=== PATIENT | male | born 1990 | race African-American/Black ===

== ENCOUNTER → 2020-12-19 13:20 | Outpatient (CLI) | payer MEDICAID, SELFPAY ==
--- NOTE | ~2020-12-19 | CT_ITS ---
EXAMINATION: CT abdomen pelvis wo con EXAM DATE: 12/19/2020 13:39 INDICATION: Abnormal levels of other serum enzymes . Abnormal liver enzymes. TECHNIQUE: Spiral CT of the abdomen and pelvis was performed without contrast. Axial, coronal and sag ittal images were reviewed. The dose-length product (DLP) for this examination was 1234.59 mGy-cm. The exposure was tailored according to patient size (auto mA exposure control), and iterative reconst ruction (ASIR) was used as additional dose reduction technique. There is no prior study for comparis on. FINDINGS: There is no nephrolithiasis or hydronephrosis. The prostate is unremarkable. The bladder is unremarkable. The liver, spleen, adrenal glands and pancreas are unremarkable. Gallbladder is u nremarkable. No biliary obstruction. There is no retroperitoneal or pelvic lymphadenopathy. The appendix is normal. The stomach and small bowel are unremarkable. There is expected amount of c olonic stool. No free intraperitoneal gas. The heart is normal in size. There are no pericardial or pleural effusions. There are no osseous abnormalities identified. There are scattered small regions of right basilar ill-defined airspace disease, smaller amount on th e left. This is nonspecific pneumonitis. Possibilities include COVID pneumonia, influenza, pulmonar y edema or hemorrhage. Some chronic processes that can have this appearance include cryptogenic organ izing pneumonia, desquamative interstitial pneumonia, nonspecific interstitial pneumonia, drug toxici ty, connective tissue disease. Please clinically correlate and test as appropriate. IMPRESSION: 1. Ill-defined nonspecific basilar pneumonitis, possibly acute stage COVID pneumonia. 2. Unremarkable abdomen/pelvis. I discussed this case with Festus Sosa MD at 12/20/2020 10:01 CDT. Reviewed, dictated and finalized at location B. IMPRESSION: 1. Ill-defined nonspecific basilar pneumonitis, possibly acute stage COVID pne umonia. 2. Unremarkable abdomen/pelvis. I discussed this case with Festus Sosa MD at 12/20/2020 10:01 CDT.
== END ==
PROVIDERS: PCP Internal Medicine; Visit Provider Internal Medicine
DX: R74.8 Abnormal levels of other serum enzymes (principal); R91.8 Other nonspecific abnormal finding of lung field
CPT/HCPCS: 74176

== ENCOUNTER 2021-01-16 15:03 | Outpatient (CLI) | payer OTHER, SELFPAY ==
--- NOTE | ~2021-01-16 | CT_ITS ---
EXAMINATION: CT BRAIN W/O DATE: 01/16/2021 15:29 INDICATION: Acute headache. Near syncope. TECHNIQUE: Computed tomography (CT) of the head was performed without intravenous contrast. The dose- length product was 605.33 mGy-cm. COMPARISON: No prior studies for comparison. FINDINGS: Normal brain parenchymal volume for age. Normal castillo-white differentiation. No acute intrac ranial hemorrhage, infarction, mass or mass effect. No ventriculomegaly or midline shift. Midline sagittal images demonstrate a normal corpus callosum, c raniovertebral junction and sella turcica. Basilar cisterns are patent. There is mucosal thickening of the ethmoid air cells. IMPRESSION: 1. No acute intracranial abnormality. 2: Mild sinus disease. Reviewed, dictated and finalized at location B.
== END 2021-01-16 15:04 | disposition home or self-care (01) ==
LOC: ANHIMG 15:08
PROVIDERS: PCP Internal Medicine; Visit Provider Internal Medicine
DX: G44.209 Tension-type headache, unspecified, not intractable (principal); J32.9 Chronic sinusitis, unspecified
CPT/HCPCS: 70450

== ENCOUNTER 2021-04-13 17:23 | Emergency (ER) | payer OTHER, SELFPAY ==
--- NOTE | ~2021-04-13 | CT_ITS ---
EXAMINATION: CTA chest PE protocol DATE: 04/13/2021 20:47 INDICATION: Elevated d-dimer. Left-sided sharp chest pain for 3 months TECHNIQUE: Computed tomography angiography (CTA) of the chest was performed with 100 mL Omnipaque-350 intravenous contrast timed to evaluate the pulmonary arteries. Coronal maximum intensity projection 3D-reconstructions were created by the technologist. Automated exposure control and iterative reconst ruction technique were employed. Exam dose: 947.65 mGy-cm total exam DLP. COMPARISON: 04/13/2021 2 view chest FINDINGS: There is diagnostic contrast enhancement of the pulmonary arteries and no evidence of pulmo nary embolism. There is cardiomegaly. No pericardial or pleural effusion. No hilar or mediastinal mass lesion or lymphadenopathy. No thoracic aortic aneurysm is evident. Minimal atelectasis in the lower lobes. No pulmonary consolidation or pulmonary mass lesion is eviden t. Included skeletal structures are unremarkable. IMPRESSION: Cardiomegaly No evidence of pulmonary embolism Reviewed, dictated and finalized at Location A. Reviewed, dictated and finalized at location J. K PACKER
--- NOTE | ~2021-04-13 | XR_ITS ---
XR chest 2V DATE: 04/13/2021 17:50 INDICATION: Left sharp chest pain for 3 months. No cardiac history. TECHNIQUE: PA and lateral chest COMPARISON: None FINDINGS: Heart size appears borderline. No hilar or mediastinal enlargement. No pulmonary infiltrate or consolidation, pleural effusion or pulmonary vascular congestion or pneumothorax. Spina bifida occulta at T1. There is mild thoracic dextroscoliosis. IMPRESSION: Heart size appears borderline; no active pulmonary disease Reviewed, dictated and finalized at location J. [employer]
[2021-04-13 17:28] VITALS: BP 170/76; PULSE 55; RESP 15; TEMP 36.2; O2SAT 97
--- NOTE | 2021-04-13 17:28 | ECG_ITS ---
Measurements Intervals [place] Rate: 54 P: 14 CO: 142 QRS: -14 QRSD: 117 T: 27 QT: 394 QTc: 376 Interpretive Statements SINUS BRADYCARDIA BORDERLINE R WAVE PROGRESSION, ANTERIOR LEADS BORDERLINE ECG Electronically Signed On 04-13-2021 20:27:16 WATER JET OPERATOR by Peyman Peña D.O.
[2021-04-13 17:45] LABS: Basophils Percent Auto 0.3 % (0.2-1.2); Eosinophils Absolute Auto 0.1 K/mm3 (0-0.3); Eosinophils Percent Auto 1.6 % (0-4.4); Hematocrit 45.2 % (42.0-52.0); Immature Granulocyte Absolute 0.02 K/mm3 (0.00-0.031); Immature Granulocyte Percent A 0.2 % (0-0.5); Lymphocytes Absolute Auto 3.89 K/mm3 (0.9-3.2); Lymphocytes Percent Auto 43.9 % (18.3-44.2); Mean Corpuscular HGB Conc 33.2 g/dl (32-36); Mean Corpuscular Hemoglobin 29.9 pg (26-34); Mean Corpuscular Volume 90.2 fl (80-100); Mean Platelet Volume 11.4 fl (7.4-10.4); Monocytes Absolute Auto 0.7 K/mm3 (0.1-0.6); Monocytes Percent Auto 7.4 % (2.6-8.5); Neutrophils Absolute Auto 4.1 K/mm3 (1.3-6.7); Neutrophils Percent Auto 46.6 % (45.5-73.1); Platelet Count Result 188 k/mm3 (150-375); Red Blood Count 5.01 M/mm3 (4.6-6.20); Red Cell Distribution Width 13.5 % (11.5-14.5); White Blood Count 8.9 K/mm3 (4.5-10.0)
[2021-04-13 17:54] LABS: Alanine Aminotransferase 35 U/L (4-50); Albumin Level 4.7 g/dL (3.5-5.1); Alkaline Phosphatase 76 U/L (38-126); Anion Gap 9 mmol/L (8-16); Aspartate Amino Transferase 37 U/L (17-59); Bilirubin,Total 0.7 mg/dL (0.2-1.3); Blood Urea Nitrogen 14 mg/dL (9-20); Calcium 9.3 mg/dL (8.4-10.2); Carbon Dioxide 27 mmol/L (22-30); Chloride 101 mmol/L (98-107); Estimated CRCL calculation 125 ml/min; Estimated Glomerular Filt Rate > 60; Glucose 96 mg/dL (65-110); Lipase 52 U/L (23-300); Partial Thromboplastin Time 24.7 SECONDS (22.3-36.8); Potassium 3.8 mmol/L (3.4-5.0); Sodium 137 mmol/L (137-145)
[2021-04-13 18:06] LABS: Troponin I < 0.012 ng/mL (0.000-0.034)
--- NOTE | 2021-04-13 19:15 | PC.NURSE ---
Pt states he has had intermittent CP for approx 3 months, worsening this AM. Pt had chest XY and stress test at PCP. Pt states his PCP thinks that it is caused by anxiety. Pt denies SOB at this time.
[2021-04-13 19:18] VITALS: BP 143/88; PULSE 64; RESP 19; O2SAT 98
--- NOTE | 2021-04-13 19:54 | ED.CHESTPAIN ---
HPI - Chest Pain General Chief Complaint: Chest Pain <Macraio Ojeda MD - Last Filed: 04/13/21 21:08> Stated Complaint: chest pain <Macario Ojeda MD - Last Filed: 04/13/21 21:08> Time Seen by Provider: 04/13/21 19:10 <Macario Ojeda MD - Last Filed: 04/13/21 21:08> Source: patient and RN notes reviewed <Macario Ojeda MD - Last Filed: 04/13/21 21:08> Limitations: no limitations <Macario Ojeda MD - Last Filed: 04/13/21 21:08> History of Present Illness HPI narrative: 30-year-old male presents to the emergency department for evaluation of intermittent left-sided chest pain. Patient states since approximately 430 this morning he has had intermittent left-sided chest pain. Patient states that he has had sharp intermittent pain. Patient states he has had a history of chest pain. Patient states he does use a CPAP at nighttime. Patient has had a recent stress test approximately 1 month ago that was negative. Patient also had a recent echocardiogram. 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 Patient states that he did not have more than 4 hours at a time where he did not take a mandatory break. Patient describes the left-sided chest pain as sharp and intermittent. Patient did not have any associated shortness of breath. Patient had no radiation of the left-sided chest pain. Patient is unsure of anything that makes the pain better or worse. Patient did not feel that the pain was worsened with exertion. Patient does have follow-up with his primary care physician but does not have a supervisor photostat. <Macario Ojeda MD - Last Filed: 04/13/21 21:08> Related Data Home Medications: Home Medications Medication Instructions Recorded Confirmed ergocalciferol (vitamin D2) 04/13/21 [Vitamin D2] ferrous sulfate [FeroSul] mg 04/13/21 <Macario Ojeda MD - Last Filed: 04/13/21 21:08> Allergies/Adverse Reactions: Allergies Allergy/AdvReac Type Severity Reaction Status Date / Time amoxicillin Allergy Unknown Verified 04/13/21 19:21 <Macario Ojeda MD - Last Filed: 04/13/21 21:08> Review of Systems Review of Systems: CONSTITUTIONAL: Denies fever, chills, or sweats. EYES: Denies visual changes, redness, or discharge. ENT: Denies rhinorrhea, congestion, sore throat, or otalgia. CARDIOVASCULAR: Intermittent left-sided chest pain without palpitations. Patient denies any shortness of breath. RESPIRATORY: Denies cough or dyspnea. GASTROINTESTINAL: Denies abdominal pain, nausea, vomiting, or diarrhea. GENITOURINARY: Denies dysuria or hematuria. SKIN: Denies rash or itching. MUSCULOSKELETAL: Denies back pain, joint pain, or myalgia. NEUROLOGIC: Denies headache, numbness, or weakness. PSYCHIATRIC: Denies anxiety or depression. <Macario Ojeda MD - Last Filed: 04/13/21 21:08> Exam Narrative: APPEARANCE: Well appearing, no pain in distress, well-nourished. HEAD: normocephalic, atraumatic. EYES: PERRLA/EOMI, conjunctivae clear. NOSE: Normal no drainage THROAT: Pharynx clear, no exudate. NECK: Supple. No adenopathy, no masses. RESPIRATORY: Airway patent, respirations nonlabored. Clear to auscultation bilaterally, no rales, rhonchi, wheezing. CARDIOVASCULAR: Regular rate and rhythm without murmurs rubs or gallops. ABDOMINAL: Soft, nontender, nondistended, normal bowel sounds MUSCULOSKELETAL: Moves all extremities. Strength/ROM intact, No edema, No calf tenderness. NEURO: Alert. Cranial nerves II through XII intact. Good coordination SKIN: Warm, dry. Normal Color PSYCHIATRIC: Normal affect/mood. <Macario Ojeda MD - Last Filed: 04/13/21 21:08> Course Course Emergency Course: Patient was updated on the plan to do delta troponins and for a D-dimer. Patient denies any current chest pain at this time. Patient's initial troponin was not elevated. Patient is awaiting his 3-hour troponin. Patient's D-dimer was elevated so a CTA of the ches
[2021-04-13] MEDS: ASPIRIN 81 MG CHEWABLE TABLET 324 MG PO (20:02)
[2021-04-13 21:01] LABS: Troponin I < 0.012 ng/mL (0.000-0.034)
[2021-04-13 21:08] VITALS: BP 122/75; PULSE 58; RESP 19; O2SAT 97
[2021-04-13 21:46] VITALS: BP 126/73; PULSE 56; RESP 18; O2SAT 99
== END 2021-04-13 21:48 | disposition home or self-care (01) ==
PROVIDERS: Emergency Medicine; Emergency Provider Emergency Medicine; PCP Internal Medicine
DX: R07.89 Other chest pain (principal); I51.7 Cardiomegaly; R00.1 Bradycardia, unspecified; R94.31 Abnormal electrocardiogram [ECG] [EKG]
CPT/HCPCS: 36415; 71046; 71275; 80053; 83690; 84484; 85025; 85380; 85610; 85730; 93005; 99284; A9270; Q9967

== ENCOUNTER 2021-12-12 16:08 | Emergency (ER) | payer OTHER, SELFPAY ==
[2021-12-12] VITALS (24 sets, daily range): BP systolic 124–151; BP diastolic 81–96; PULSE 61–78; RESP 12–25; TEMP 36.8; O2SAT 97–100
--- NOTE | ~2021-12-12 | XR_ITS ---
EXAMINATION: XR chest 2V Exam Date/Time: 12/12/2021 17:15 CDT HISTORY: chest pain Comparison: 04/13/2021, CTPA 04/13/2021. RESULT: Lines, tubes, and devices: None. Lungs and pleura: Clear. Cardiomediastinal silhouette: Stable. Other: No acute osseous or upper abdominal finding. IMPRESSION: No acute cardiopulmonary process. Reviewed, dictated and finalized at location K.
--- NOTE | ~2021-12-12 | CT_ITS ---
EXAMINATION: CT soft tissue neck w con DATE: 12/12/2021 18:42 INDICATION: TECHNIQUE: Computed tomography (CT) of the neck was performed with 75 mL Omnipaque-350 intravenous co ntrast. The dose-length product was 573.41 mGy-cm. COMPARISON: None FINDINGS: Smoothly marginated thin-walled cystic (35HU) right neck mass behind the right mandibular angle withi n the level of C3-4, measuring 3.9 cm AP by 3.7 cm transverse by 7.0 cm craniocaudad, which displaces and mildly narrows the adjacent internal jugular vein and mildly displacing the adjacent carotid, wi thout significant stenosis. The thyroid gland is unremarkable. The submandibular and parotid gland s are symmetric. A single borderline enlarged right jugular node is present, measuring 8 mm in shor t axis diameter The superior mediastinum is unremarkable. The airway is unremarkable. Parapharyn geal and pre-glottic fat planes are preserved. Normal arterial enhancement. The orbits are unremar kable. Multiple ethmoid air cells are opacified. The lungs are clear. There is cervical spondylos is. IMPRESSION: 3.9 x 3.7 x 7.0 cm right neck mass. This may represent a branchial cleft cyst or lymphatic malformat ion. Cystic lymphadenopathy and abscess are considered less likely given the lack of adjacent inflamm atory change. Reviewed, dictated and finalized at location K. IMPRESSION: 3.9 x 3.7 x 7.0 cm right neck mass. This may represent a branchial cleft cyst or lymphatic malformation. Cystic lymphadenopathy and abscess are considered le ss likely given the lack of adjacent inflammatory change.
--- NOTE | 2021-12-12 16:24 | ECG_ITS ---
Measurements Intervals [place] Rate: 62 P: 26 IN: 162 QRS: -12 QRSD: 106 T: 28 QT: 380 QTc: 388 Interpretive Statements SINUS RHYTHM VOLTAGE CRITERIA FOR LVH POOR R WAVE PROGRESSION, ANTERIOR LEADS BORDERLINE ECG COMPARED TO ECG 04/13/2021 17:32:22 SINUS RHYTHM NOW PRESENT LEFT VENTRICULAR HYPERTROPHY NOW PRESENT Electronically Signed On 12-12-2021 16:47:13 CDT by Peyman Peña D.O.
[2021-12-12 16:52] LABS: Basophils Percent Auto 0.4 % (0.2-1.2); Eosinophils Absolute Auto 0.3 K/mm3 (0-0.3); Eosinophils Percent Auto 3.4 % (0-4.4); Hematocrit 47.7 % (42.0-52.0); Hemoglobin 15.8 g/dL (14.0-18.0); Immature Granulocyte Absolute 0.02 K/mm3 (0.00-0.031); Immature Granulocyte Percent A 0.2 % (0-0.5); Lymphocytes Absolute Auto 4.01 K/mm3 (0.9-3.2); Mean Corpuscular HGB Conc 33.1 g/dl (32-36); Mean Corpuscular Hemoglobin 29.5 pg (26-34); Mean Corpuscular Volume 89.2 fl (80-100); Mean Platelet Volume 10.9 fl (7.4-10.4); Monocytes Absolute Auto 0.6 K/mm3 (0.1-0.6); Neutrophils Absolute Auto 4.1 K/mm3 (1.3-6.7); Platelet Count Result 211 k/mm3 (150-375); Red Blood Count 5.35 M/mm3 (4.6-6.20); Red Cell Distribution Width 13.3 % (11.5-14.5); White Blood Count 9.1 K/mm3 (4.5-10.0)
[2021-12-12 17:03] LABS: Alanine Aminotransferase 51 U/L (6-50); Albumin Level 4.7 g/dL (3.5-5.1); Alkaline Phosphatase 80 U/L (38-126); Anion Gap 13 mmol/L (8-16); Aspartate Amino Transferase 45 U/L (17-59); Bilirubin,Total 0.5 mg/dL (0.2-1.3); Blood Urea Nitrogen 14 mg/dL (9-20); Calcium 9.4 mg/dL (8.4-10.2); Carbon Dioxide 25 mmol/L (22-30); Chloride 100 mmol/L (98-107); Estimated CRCL calculation 114 ml/min; Estimated Glomerular Filt Rate > 60; Glucose 96 mg/dL (65-110); Lipase 78 U/L (23-300); Potassium 3.9 mmol/L (3.4-5.0); Sodium 138 mmol/L (137-145)
[2021-12-12 17:07] LABS: Prothrombin Time 13.1 Seconds (11.1-14.7)
[2021-12-12 17:08] LABS: Partial Thromboplastin Time 29.3 SECONDS (22.3-36.8)
[2021-12-12 17:13] LABS: Troponin I < 0.012 ng/mL (0.000-0.034)
--- NOTE | 2021-12-12 18:10 | ED.GENADULT ---
HPI - General Adult General Chief complaint: Unspecified Stated complaint: Neck Swelling x5 days, head pressure Time Seen by Provider: 12/12/21 17:43 Source: patient Mode of arrival: ambulatory Limitations: no limitations History of Present Illness HPI narrative: Patient is a 31 y/o male who presents to the ED with c/o swelling to his right-sided neck. Patient reports having intermittent, waxing and waning swelling to his right sided neck, below the level of his jaw. He states it seems to be worse at certain times during the day and after exerting himself. He believes the size seems to be increasing over the last 4 weeks. He denies any significant pain. Reports occasional headaches, but denies any dysphagia, difficulty breathing, sore throat, cough, congestion, fevers, nausea, vomiting. Patient also mentions having intermittent palpitations and L sided chest pain over the last several months. He states the symptoms occur at random times and only sometimes when he is exerting himself. His PCP is aware of this. Patient denies any pain currently. No shortness of breath. No history of hypertension, hyperlipidemia, diabetes mellitus, smoking. Does have family history of premature heart disease. Related Data Home Medications Medication Instructions Recorded Confirmed ergocalciferol (vitamin D2) 1,250 04/13/21 mcg (50,000 unit) capsule (Vitamin D2) ferrous sulfate 325 mg (65 mg mg 04/13/21 iron) tablet (FeroSul) Allergies Allergy/AdvReac Type Severity Reaction Status Date / Time amoxicillin Allergy Unknown Verified 12/12/21 17:41 Review of Systems Review of Systems: CONSTITUTIONAL: Denies fever, chills, or sweats. ENT: Reports right-sided neck swelling. Denies dysphagia, rhinorrhea, congestion, sore throat. CARDIOVASCULAR: Reports intermittent left-sided chest pain, palpitations. Denies edema. RESPIRATORY: Denies cough or dyspnea. GASTROINTESTINAL: Denies abdominal pain, nausea, vomiting. NEUROLOGIC: Reports headache. All systems reviewed & are unremarkable except as noted in HPI and below PMFSH Past Medical History Medical History No pertinent past medical history Surgical History Surgical History (Updated 12/12/21 @ 19:32 by Makayla Bradley PA-C) No pertinent past surgical history Social History Social History (Updated 12/12/21 @ 19:32 by Makayla Bradley PA-C) Smoking status: Never smoker Exam Narrative: GENERAL: Well appearing, obese, non-toxic, in no acute distress. HEAD: Normocephalic, atraumatic. EYES: PERRL/EOMI, conjunctivae clear bilaterally. NOSE: Normal, no drainage. THROAT: Pharynx clear. MMs moist. No tonsillar hypertrophy, exudate, posterior pharynx erythema. NECK: Supple. Large mass versus lymphadenopathy to right anterior cervical region extending to R lower mandible, somewhat firm but nontender. Slightly movable, does not feel fixed in place. RESPIRATORY: Airway patent, respirations nonlabored. Clear to auscultation bilaterally, no rales, rhonchi, wheezing. CARDIOVASCULAR: Regular rate and rhythm without murmurs, rubs, or gallops. Peripheral pulses 2+ and equal bilaterally. MUSCULOSKELETAL: Moves all extremities. Strength/ROM intact without gross deformities. SKIN: Warm, dry, normal color. No rashes. NEURO: A&O X3. Speech clear. Cranial nerves II-XII grossly intact. Steady gait. No ataxic movements. PSYCHIATRIC: Appropriate mood and affect. Normal interaction. Course Consultations Consultation #1: Discussed case with Dr. Posey, ENT - recommended cyst drainage, abx, transfer for ENT. Date: 12/12/21 Consultation #2: Discussed case with Dr. Crane, ENT, recommended OP f/u in their ENT clinic this week, Augmentin, strict return precautions. Date: 12/12/21 Time: 20:22 Vital Signs Vital signs: Vital Signs Temperature 98.3 F 12/12/21 16:20 Pulse Rate 68 12/12/21 16:20 Respiratory Rate 20 11/30
--- NOTE | 2021-12-12 19:23 | PC.NURSE ---
Patient report received from JANICE Laguna. All questions answered and care of patient assumed.
--- NOTE | 2021-12-12 19:30 | PC.NURSE ---
Patient resting comfortably in stretcher at this time. No complaints. Denies CP. VSS. 3hr troponin drawn. Awaiting further orders and disposition. Will continue to address needs as they arise.
[2021-12-12 20:19] LABS: Troponin I < 0.012 ng/mL (0.000-0.034)
[2021-12-12] MEDS: CLINDAMYCIN HCL 150 MG CAP 300 MG PO (21:35)
== END 2021-12-12 21:44 | disposition home or self-care (01) ==
PROVIDERS: Emergency Provider Emergency Medicine; PCP Internal Medicine
DX: R22.1 Localized swelling, mass and lump, neck (principal); R00.2 Palpitations
CPT/HCPCS: 36415; 70491; 71046; 80053; 83690; 84484; 85025; 85610; 85730; 93005; 99284; A9270; Q9967

== ENCOUNTER 2022-02-08 17:08 | Emergency (ER) | payer OTHER, SELFPAY ==
--- NOTE | ~2022-02-08 | XR_ITS ---
EXAMINATION: XR chest 2V DATE: 02/08/2022 17:33 INDICATION: Productive cough. Sore throat. TECHNIQUE: Frontal and lateral views of the chest were obtained. COMPARISON: Chest 2 views 12/12/2021, chest CT 04/13/2021 FINDINGS: The chest demonstrates clear lungs without pneumonia, pleural effusion, or pneumothorax. Th e heart size is normal. IMPRESSION: 1. No acute cardiopulmonary disease. Reviewed, dictated and finalized at location A. [employer] SPECIALIST
[2022-02-08 17:16] VITALS: BP 161/88; PULSE 79; RESP 16; TEMP 36.8; O2SAT 98
--- NOTE | 2022-02-08 17:28 | ED.URI ---
HPI - URI/Sore Throat General Chief Complaint: Upper Respiratory Infection Stated Complaint: Sore throat Time Seen by Provider: 02/08/22 17:12 History of Present Illness HPI Narrative: 31-year-old male presents the emergency room for evaluation of sinus congestion, postnasal drip, rhinorrhea, sore throat and productive cough. States symptoms are worse at night when laying down. Patient's been taking [id number] Mucinex and NyQuil with some relief. Patient denies fevers or body aches. Denies shortness of breath or chest pain Related Data Home Medications Medication Instructions Recorded Confirmed ergocalciferol (vitamin D2) 1,250 04/13/21 mcg (50,000 unit) capsule (Vitamin D2) ferrous sulfate 325 mg (65 mg mg 04/13/21 iron) tablet (FeroSul) Allergies Allergy/AdvReac Type Severity Reaction Status Date / Time amoxicillin Allergy Unknown Verified 02/08/22 17:41 Review of Systems Review of Systems: CONSTITUTIONAL: Denies fever, chills, or sweats. EYES: Denies visual changes, redness, or discharge. ENT: Reports rhinorrhea, congestion, and sore throat CARDIOVASCULAR: Denies chest pain, palpitations, or edema. RESPIRATORY: Reports cough GASTROINTESTINAL: Denies abdominal pain, nausea, vomiting, or diarrhea. GENITOURINARY: Denies dysuria or hematuria. SKIN: Denies rash or itching. MUSCULOSKELETAL: Denies back pain, joint pain, or myalgia. NEUROLOGIC: Denies headache, numbness, dizziness, or weakness. PSYCHIATRIC: Denies anxiety or depression. PMFSH Past Medical History Medical History No pertinent past medical history Surgical History Surgical History No pertinent past surgical history Social History Social History Smoking status: Never smoker Exam Narrative: GENERAL: Well-appearing, well-nourished, no physical limitations, and in no acute distress. HEAD: Normocephalic, atraumatic. EYES: Conjunctivae normal, PERRLA and EOMI. ENT: External nose normal, Nares clear, no rhinorrhea or epistaxis. Mucous membranes moist. Oropharynx without tonsillar hypertrophy exudate or other lesions. External ears normal, bilateral TMs normal bilaterally NECK: Supple. No meningeal signs. No adenopathy or masses. No carotid bruits or JVD CHEST: Clear to auscultation. No respiratory distress. No wheezes rales or rhonchi. HEART: Regular rate and rhythm. No murmur heard. Normal peripheral pulses. EXTREMITIES: Normal range of motion. No edema. No clubbing or cyanosis SKIN: Warm, dry, no rash. No noted wounds NEURO: No focal deficits. Alert and oriented x3. MAEW. CN's II-XI intact bilaterally, normal gait PSYCH: Cooperative. Normal mood and affect. Course Vital Signs Vital signs: Vital Signs Temperature 36.8 C 02/08/22 17:16 Pulse Rate 79 02/08/22 17:16 Respiratory Rate 16 02/08/22 17:16 Blood Pressure 161/88 H 02/08/22 17:16 Pulse Oximetry 98 02/08/22 17:16 Temperature 36.8 C 02/08/22 17:16 Pulse Rate 79 02/08/22 17:16 Respiratory Rate 16 02/08/22 17:16 Blood Pressure 161/88 H 02/08/22 17:16 Pulse Oximetry 98 02/08/22 17:16 MDM - URI/Sore Throat Lab Data Labs: Lab Results 02/08/22 Range/Units 17:47 Influenza A (RT-PCR) Negative (Negative) Influenza B (RT-PCR) Negative (Negative) RSV (RT-PCR) Negative (Negative) SARS-CoV-2 RNA (RT-PCR) Negative Discharge Plan Discharge Clinical Impression: Upper respiratory infection Patient Disposition: Home, Self-Care Condition: Stable Instructions: Antibiotic Form, Cold Symptoms (ED) Prescriptions: New prednisone 20 mg tablet 60 mg PO DAILY 5 Days Qty: 15 0RF pseudoephedrine HCl [Sudafed] 30 mg tablet 30 mg PO Q4-6H PRN (Reason: nasal congestion) Qty: 30 0RF Rx Instructions: DNExceed 4 doses/2
[2022-02-08 18:32] LABS: Influenza A QL RT-PCR Negative (Negative); Influenza B QL RT-PCR Negative (Negative); RSV RNA, RT-PCR Negative (Negative); SARS-CoV-2 RNA PCR Negative
== END 2022-02-08 18:57 | disposition home or self-care (01) ==
PROVIDERS: Emergency Provider Nurse Practitioner Family; PCP Internal Medicine
DX: J06.9 Acute upper respiratory infection, unspecified (principal); Z20.822 Contact with and (suspected) exposure to COVID-19
CPT/HCPCS: 71046; 87637; 96372; 99283; J1100

== ENCOUNTER 2022-05-17 07:25 | Emergency (ER) | payer OTHER, SELFPAY ==
[2022-05-17 08:00] VITALS: BP 136/89; PULSE 66; RESP 18; TEMP 36.6; O2SAT 100
--- NOTE | 2022-05-17 08:35 | PC.NURSE ---
Patient up to to triage desk to notify this RN that he no longer wanted to wait to be seen and would go somewhere else for evaluation. Patient encouraged to stay but he declined.
== END 2022-05-17 08:35 | disposition left against medical advice (07) ==
PROVIDERS: PCP Internal Medicine
DX: M54.2 Cervicalgia (principal)
CPT/HCPCS: 99199

== ENCOUNTER 2022-06-27 00:14 | Emergency (ER) | payer OTHER, SELFPAY ==
[2022-06-27 00:17] VITALS: BP 152/80; PULSE 67; RESP 20; TEMP 36.9; O2SAT 100
--- NOTE | 2022-06-27 01:44 | ED.DENTAL ---
HPI - Dental/Oral General Chief complaint: Dental/Oral Stated complaint: dental pain Time Seen by Provider: 06/27/22 01:26 History of Present Illness HPI Narrative: Patient is a 32-year-old male here for evaluation of right lower dental pain x1 day. He has a history of poor dentition and has seen a dentist in the past but unfortunately lost his insurance and has been unable to follow-up with them. He had a crown placed that has since cracked off. Attempted Tylenol without relief of his pain in addition to a left lower Bactrim. He denies any trismus, facial swelling, fevers or chills, nausea or vomiting. Related Data Home Medications Medication Instructions Recorded Confirmed ergocalciferol (vitamin D2) 1,250 04/13/21 mcg (50,000 unit) capsule (Vitamin D2) ferrous sulfate 325 mg (65 mg mg 04/13/21 iron) tablet (FeroSul) Allergies Allergy/AdvReac Type Severity Reaction Status Date / Time amoxicillin Allergy Unknown Verified 06/27/22 00:33 Review of Systems Review of Systems: Gen.: Denies fevers or chills Eyes: Denies eye pain or visual change ENT: D reports dental pain Respiratory: Denies shortness of breath or cough CV: Denies chest pain or palpitations GI: Denies abdominal pain nausea, emesis or diarrhea denies burning, urgency, frequency or hematuria Musculoskeletal: Denies back pain or muscle pain Neuro: Denies numbness, tingling, weakness or focal weakness Skin: Denies rash Except as documented, all other systems reviewed and negative [facility] Past Medical History Medical History No pertinent past medical history Surgical History Surgical History No pertinent past surgical history Social History Social History Smoking status: Never smoker Exam Narrative: Gen: Alert, oriented, no acute distress Eyes: EOMI, no icterus ENT: Tooth #29 is cracked, numerous dental caries throughout oropharynx, no trismus. Pulm: Respirations even and unlabored, symmetric thorax expansion, no audible stridor or visible cyanosis CV: Regular rate per telemetry GI: No distension, no voluntary/involuntary guarding Neuro: AOx4, moves all extremities without apparent difficulty or weakness, follows commands Skin: No jaundice, no visible bruising, rashes, lesions or wounds on exposed skin Psych: Normal mood/affect, insight/judgement good, adequate fund of knowledge, recent/remote memory intact Course Vital Signs Vital signs: Vital Signs Temperature 98.5 F 06/27/22 00:17 Pulse Rate 67 06/27/22 00:17 Respiratory Rate 20 06/27/22 00:17 Blood Pressure 152/80 H 06/27/22 00:17 Pulse Oximetry 100 06/27/22 00:17 Oxygen Delivery Room Air 06/27/22 00:17 Temperature 98.5 F 06/27/22 00:17 Pulse Rate 67 06/27/22 00:17 Respiratory Rate 20 06/27/22 00:17 Blood Pressure 152/80 H 06/27/22 00:17 Pulse Oximetry 100 06/27/22 00:17 Oxygen Delivery Room Air 06/27/22 00:17 MDM - Dental/Oral MDM Narrative Medical decision making narrative: Patient presents for dental pain due to suspected dental lainey. Patient not immunosuppressed, afebrile and well appearing with patent airway, have low suspicion for deep space infection or any concern for airway compromise. Based on history, physical, and work up. No evidence of tooth fracture, avulsion, or bleeding socket. No evidence of RPA, CARTRIDGE MAKER, Deandre?s angina, periapical abscess. Instructed patient to continue to treat pain with ibuprofen/acetaminophen until they see a dentist. Patient discharged home and will follow up with dentist. Discussed return precautions for odontogenic infections and other dental pain emergencies. Discharge Plan Discharge Clinical Impression: Dental caries Patient Disposition: Home, Self-Care Condition: Stable Instructions: Antibioti
[2022-06-27] MEDS: ACETAMINOPHEN 325 MG TABLET 650 MG PO (01:45)
[2022-06-27] MEDS: KETOROLAC 30 MG/ML VIAL (*BKC) IM (01:46)
== END 2022-06-27 01:50 | disposition home or self-care (01) ==
PROVIDERS: Emergency Provider Physician Assistant; PCP Emergency Medicine
DX: K02.9 Dental caries, unspecified (principal)
CPT/HCPCS: 96372; 99283; A9270; J1885

== ENCOUNTER 2023-11-01 17:13 | Emergency (ER) | payer OTHER, SELFPAY ==
--- NOTE | ~2023-11-01 | XR_ITS ---
EXAMINATION: [id number] DATE: 11/01/2023 17:40 INDICATION: Right rib pain post fall TECHNIQUE: PA view of the chest and 3 views of the right ribs were obtained. COMPARISON: Chest radiograph dated 02/08/2022 FINDINGS: Nondisplaced fracture at the anterior right sixth rib. Possible additional nondisplaced fracture of t he anterior right fourth and fifth ribs. Lungs are clear with no focal airspace opacities, pulmonary edema, pleural effusion or pneumothorax. Heart size appears enlarged with lobular contour which could be seen with either cardiomegaly or pericardial effusion. IMPRESSION: 1. Minimally displaced anterior right sixth rib fractures with possible nondisplaced fractures of the anterior right fourth and fifth ribs. 2. Enlarged and globular appearing cardiac silhouette which could be due to cardiomegaly or pericardi al effusion. Reviewed, dictated and finalized at location A. IMPRESSION: 1. Minimally displaced anterior right sixth rib fractures with possible nondisp laced fractures of the anterior right fourth and fifth ribs. 2. Enlarged and globular appearing cardiac silhouette which could be due to car diomegaly or pericardial effusion.
[2023-11-01 17:14] VITALS: BP 146/89; PULSE 71; RESP 16; TEMP 36.2; O2SAT 99
--- NOTE | 2023-11-01 17:17 | ED.GENADULT ---
HPI - General Adult General Chief complaint: Unspecified <Bert Jolley APRN - Last Filed: 11/01/23 17:18> Stated complaint: ruq pain <Bert Jolley APRN - Last Filed: 11/01/23 17:18> Time Seen by Provider: 11/01/23 17:17 <Bert Jolley APRN - Last Filed: 11/01/23 17:18> patient presents with right rib pain. patient states he was at work and metal bar hit him in the ribs. patient states he felt a pop. patient having pain with movement. patient denies any other injuries. PE: A&OX3, BS CTA, HR RRR with no murmur, patient ambulating and moving all extremities <Bert Jolley APRN - Last Filed: 11/01/23 17:18> History of Present Illness HPI narrative: Patient is a 33-year-old male who presents ER with right-sided rib pain. He was using a metal bar to work on a truck when he felt a pop in his right anterior chest wall. Mildly short of breath related to it. No fevers chills or sweats. No exertional dyspnea and he is no longer short of breath just initially so. Is not taking any pain medication. <Dayton Sims MD - Last Filed: 11/01/23 18:34> Related Data Home medications: Home Medications Medication Instructions Recorded Confirmed ergocalciferol (vitamin D2) 1,250 04/13/21 mcg (50,000 unit) capsule (Vitamin D2) ferrous sulfate 325 mg (65 mg mg 04/13/21 iron) tablet (FeroSul) <Bert Jolley APRN - Last Filed: 11/01/23 17:18> Allergies/adverse reactions: Allergies Allergy/AdvReac Type Severity Reaction Status Date / Time amoxicillin Allergy Unknown Verified 06/27/22 00:33 <Bert Jolley APRN - Last Filed: 11/01/23 17:18> Review of Systems Constitutional: Constitutional: Reports no additional constitutional complaints <Dayton Sims MD - Last Filed: 11/01/23 18:34> Cardiovascular: Cardiovascular: Reports as per HPI <Dayton Sims MD - Last Filed: 11/01/23 18:34> Respiratory: Respiratory: Reports as per HPI <Dayton Sims MD - Last Filed: 11/01/23 18:34> Musculoskeletal: Musculoskeletal: Reports no additional musculoskeletal complaints <Dayton Sims MD - Last Filed: 11/01/23 18:34> PMFSH Past Medical History Medical History: Medical History No pertinent past medical history <Bert Jolley APRN - Last Filed: 11/01/23 17:18> Surgical History Surgical History: Surgical History No pertinent past surgical history <Bert Jolley APRN - Last Filed: 11/01/23 17:18> Social History Social History: Social History Smoking status: Never smoker <Bert Jolley APRN - Last Filed: 11/01/23 17:18> Exam Narrative: GENERAL: Well-appearing, well-nourished, and in no acute distress. HEAD: Normocephalic, atraumatic. ENT: Mucous membranes moist. CHEST: Clear to auscultation. No respiratory distress. No chest wall tenderness. HEART: Regular rate and rhythm. Normal peripheral pulses. EXTREMITIES: Normal range of motion. No edema. NEURO: Alert and oriented x3. PSYCH: Normal mood and affect. <Dayton Sims MD - Last Filed: 11/01/23 18:34> Course Vital Signs Vital signs: Vital Signs Temperature 97.1 F L 11/01/23 17:14 Pulse Rate 71 11/01/23 17:14 Respiratory Rate 16 11/01/23 17:14 Blood Pressure 146/89 H 11/01/23 17:14 Pulse Oximetry 99 11/01/23 17:14 Temperature 97.1 F L 11/01/23 17:14 Pulse Rate 71 11/01/23 17:14 Respiratory Rate 16 11/01/23 17:14 Blood Pressure 146/89 H 11/01/23 17:14 Pulse Oximetry 99 11/01/23 17:14 <Bert Jolley, HOME MISSION WORKER - Last Filed: 11/01/23 17:18> Vital Signs Temperature 97.1 F L 11/01/23 17:14 Pulse Rate 71 11/01/23 17:14 Respiratory Rate 16 11/01/23 17:14 Blood Pressure 146/89 H 11/01/23 17:14 Pulse Oximetry 99
[2023-11-01 18:46] VITALS: BP 138/88; PULSE 82; RESP 16; TEMP 36.7; O2SAT 100
== END 2023-11-01 18:52 | disposition home or self-care (01) ==
PROVIDERS: Emergency Provider Emergency Medicine
DX: S22.31XA Fracture of one rib, right side, initial encounter for closed fracture (principal); W22.8XXA Striking against or struck by other objects, initial encounter
CPT/HCPCS: 71101; 99283

== ENCOUNTER 2024-05-27 05:43 | Emergency (ER) | payer OTHER, SELFPAY ==
[2024-05-27 05:44] VITALS: BP 142/88; PULSE 103; RESP 18; TEMP 36.6; O2SAT 96
--- OUTSIDE RECORDS SUMMARY | 2024-05-27 05:46 | XMS_ITS | Patient Health Record ---
Author Organization [facility] Address [address] [place] [address] Care Team Providers Care Hospitality Associate Name Role Phone Festus Sosa Primary Care Provider Delaney Alejandro Unavailable [phone] Allergies No Known Allergies Reason For Referral No Information Medications Medication SIG (Take, Route, Frequency, Duration) Notes Start Date End Date Status CPAP Mask LARGE NASAL MASK, TU CAREY, CPAP MACHINE AT 6CM WATER PRESSURE EXTERNALLY WHILE SLEEPING 01/27/2021 Active Vitamin D (Ergocalciferol) 1.25 MG (25957 UT) 1 capsule Orally MONTHLY Active Gabapentin 100 MG 1 capsule Orally thr ee times daily 09/12/2021 Active Cetirizine HCl 10 MG 1 tablet Orally at night 08/30 Active Fluticasone Propionate 50 MCG/ACT 2 sprays in each nostril Nasally at night 09/12/2021 Active Social History Tobacco Use: Social History Observation Description Date Details (start date - stop date) Never Smoker NA - NA Sex Assigned At : Social History Observation Description Sex Assigned At Male Dont use, Tobacco Use/Smoking Question Answer Notes Are you a nonsmoker Alcohol Screen (Audit-C) Question Answer Notes Did you have a drink containing alcohol in the p ast year? Yes Problems Problem Type SNOMED Code ICD Code Onset Dates Problem Status W/U Status Risk Notes Problem 57194154 Iron deficiency (E61.1) Active confirmed Problem 26179117 Chronic rhinitis (J31.0) Active confirmed Problem 99985650 Anxiety (F41.9) 05/05/2021 Active confirmed Problem 42148561 Vitamin D deficiency (E55.9) Active confirmed Problem Sleep apnea (66536310) Sleep apnea (G47.30) Active confirmed Problem 25876180 Obstructive sleep apnea (G47.33) Active confirmed Problem 912320514 Anxiety about health (F41.8) Active confirmed Problem 88486045 Chronic fatigue (R53.82) Active confirmed Problem 275156736 Acute non intractable tension-type headache (G44.209) Active confirmed Problem Obesity (001647192) Obesity, unspecified classification, unspecified obesity type, unspecified whether serious comorbidity present (E66.9) Active confirmed Plan Of Treatment No Information Insurance Providers Payer Name Payer Address Payer Phone Subscriber Number Group Number Insured Name Patient Relationship to Insured Coverage Start Date Coverage End Date [employer] [address] [place] [phone] [id number] Brice Canales Self - patient is the insured 1 MEDICAID [address] [facility] [place] [address] [id number] Brice Canales Self - patient is the insured 1 1 [employer] [address] [place] [address] [id number] Brice Canales Self - patient is the insured 2 Medical (General) History Medical History History ICD Code Sleep apnea G47.30 Surgical History Surgery Date(Month/Year) (R) broken ankle repair Hospitalization History Reason Date(Month/Year)
--- OUTSIDE RECORDS SUMMARY | 2024-05-27 05:46 | XMS_ITS ---
Author Organization [facility] Address [address] [place] [address] Care Team Providers Care Dry Mill Operator Name Role Phone Festus Sosa Primary Care Provider [phone] Delaney Alejandro [phone] Social History Sex Assigned At : Social History Observation Description Sex Assigned At Male Encounters Encounter Location Date Provider Diagnosis [facility] [address] [place] [address] 09/30/2023 Delaney Alejandro Plan Of Treatment No Information Progress Notes * Brice TAVERAS EDOB: [birth year] (34 yo M)Acc No.[id number]:09/30/2023 UNLOCKED PROGRESS NOTE Patient: Brice ROBISON Provider: YASMIN Polanco :1990 A ge:33 Y S ex:Male Date:09/30/2023 Address:[address] [place], [place] [id number] Pcp:Festus Sosa Subjective: * Chief Complaints: * * Medical History: Objective: * Vitals: Assessment: Plan: * Treatment: * * Electronic signature of Delaney Alejandro [id number] on 05/27/2024 at 05:45 AM OCCUPATIONAL HEALTH TECHNICIAN Sign off status: Pending * Provider: YASMIN Polanco Date: 09/30/2023 Generated for Kole edgar/Cristal/Priteshitting on: 0 05/27/2024 05:45 AM OCCUPATIONAL HEALTH TECHNICIAN
--- OUTSIDE RECORDS SUMMARY | 2024-05-27 05:46 | XMS_ITS | Referral Summary ---
Author Organization [facility] [employer] Address [address] [place] [address] Care Team Providers Care [place] Records Management Officer Name Role Phone Unavailable Primary Care Provider Unavailabl e Source Comments [facility],non-owned Affiliates and Associated Physician Practices is amultiple site organization consisting of ambulatory clinics and hospital sitesin [place], [place], [place] and [place]. This disclosure is being madepursuant to the Care Everywhere program and may not contain all information available regarding this patient. Last updated 17.[facility] [employer] Allergies Active Allergy Reactions Criticality Noted Date Comments Amoxicillin Rash Medium 10/26/2020 Medications * Be aware that medications may not be up to date on this document. Alwaysverify current medications with the patient. 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 Social History Tobacco Use Types Packs/Day Years Used Date Smoking Tobacco: Never Smokeless Tobacco: Never Tobacco Cessation:Counseling Given: Not Answered Alcohol Use Standard Drinks/Week Comments Yes 0 (1 standard drink = 0.6 oz pur e alcohol) rarely hookah with nicotine Sex and Gender Information Value Date Recorded Sex Assigned at Not on file Gender Identity Not on file Sexual Orientation Not on file Last Filed Vital Signs Vital Sign Reading Time Taken Comments Blood Pressure 146/93 05/14/2022 1:57 PM REGULATOR PIN INSERTER Pulse 69 05/14/2022 1:57 PM REGULATOR PIN INSERTER Temperature 36.7 C (98.1 F) 05/14/2022 1:57 PM REGULATOR PIN INSERTER Respiratory Rate 18 05/14/2022 1:57 PM REGULATOR PIN INSERTER Oxygen Saturation 100% 05/14/2022 1:57 PM REGULATOR PIN INSERTER Inhaled Oxygen Concentration - - Weight 144.2 kg (317 lb 14.4 oz) 05/14/2022 1:57 PM REGULATOR PIN INSERTER Height 190.5 cm (6' 3 ) 05/14/2022 1:57 PM REGULATOR PIN INSERTER Body Mass Index 39.73 05/14/2022 1:57 PM REGULATOR PIN INSERTER Plan of Treatment Not on file BRICE MENDEZ Personal/Famil y 1990 [address] [place] [address] Brice Canales Personal/Famil y Self 1990 [address] [place] [address]
--- OUTSIDE RECORDS SUMMARY | 2024-05-27 05:46 | XMS_ITS | Clinical Summary ---
Author Organization [facility] [employer] Address [address] [place] [address] Care Team Providers Care Underwriting Director Name Role Phone Unavailable Primary Care Provider Unavailabl e Source Comments [facility],non-owned Affiliates and Associated Physician Practices is amultiple site organization consisting of ambulatory clinics and hospital sitesin [place], [place], [place] and [place]. This disclosure is being madepursuant to the Care Everywhere program and may not contain all information available regarding this patient. Last updated 17.[facility] [employer] Allergies Active Allergy Reactions Criticality Noted Date Comments Amoxicillin Rash Medium 10/26/2020 Medications * Be aware that medications may not be up to date on this document. Alwaysverify current medications with the patient. Medication Sig Dispensed Refills Start Date End Date Status fluticasone propionate (Flonase) 50 MCG/ACT nasal sprayIndications:Seaso nal allergic rhinitis, unspecified trigger [place] 2 (two) sprays into each nostril once [...] Comments Blood Pressure 146/93 05/14/2022 1:57 PM VACUUM KETTLE COOK Pulse 69 05/14/2022 1:57 PM VACUUM KETTLE COOK Temperature 36.7 C (98.1 F) 05/14/2022 1:57 PM [employer]UM K[employer] COOK Respiratory Rate 18 05/14/2022 1:57 PM VACUUM KETTLE COOK Oxygen Saturation 100% 05/14/2022 1:57 PM VACUUM KETTLE COOK Inhaled Oxygen Concentration - - Weight 144.2 kg (317 lb 14.4 oz) 05/14/2022 1:57 PM VACUUM KETTLE COOK Height 190.5 cm (6' 3 ) 05/14/2022 1:57 PM [employer]UM K[employer] Body Mass Index 39.73 05/14/2022 1:57 PM [employer]UM K[employer]OOK Plan of Treatment Health Maintenance Due Date Last Done Comments HIV SCREENING 2006 HEPATITIS C SCREENING 04/29/2009 DTAP/TDAP/TD VACCINES (1 - Tdap) 2010 HEPATITIS B VACCINE (1 of 3 - 19+ 3-dose series) 2010 COVID-19 VACCINE (1 - 2023-2 5 season) 2023 INFLUENZA VACCINE (#1) 2023 DEPRESSION SCREENING 04/01/2024 ZOSTER VACCINE (1 of 2) 2041 HIB VACCINE Aged Out No longer eligi ble based on patient's age to complete this topic HPV VACCINE Aged Out No longer eligi ble based on patient's age to complete this topic MENINGOCOCCAL (Group B) VACCINE Aged Out No longer eligible based on patient's age to complete this topic MENINGOCOCCAL VACCINE Aged Out No natalie jocelyne eligible based on patient's age to complete this topic PNEUMOCOCCAL VACCINE Aged Out No long er eligible based on patient's age to complete this topic BRICE MENDEZ Personal/Famil y 1990 [address] [place] [address] Brice Canales Personal/Famil y Self 1990 [address] [place] [address]
--- OUTSIDE RECORDS SUMMARY | 2024-05-27 05:46 | XMS_ITS | Patient Health Summary ---
Author Organization [facility] Address [address] [place] [address] Care Team Providers Care Briefcase Sewer Name Role Phone Unavailable Primary Care Provider Unavailabl e Note from [facility],non-owned Affiliates and Associated Physician Practices is amultiple site organization consisting of ambulatory clinics and hospital sitesin [place], [place], [place] and [place]. This disclosure is being madepursuant to the Care Everywhere program and may not contain all information available regarding this patient. Last updated 17.[facility] Allergies * Amoxicillin(Rash) -Medium Criticality Medications * Be aware that medications may not be up to date on this document. Alwaysverify current medications with the patient. * fluticasone propionate (Flonase) 50 MCG/ACT nasal spray(Started 12/15/2021) [place] 2 (two) sprays into each nostril once daily 4 refills by 12/15/2022 * gabapentin (Neurontin) 300 MG capsule Take 1 (one) capsule by mouth 3 times daily Active Problems Problem Noted Date Diagnosed Date [...] Comments Blood Pressure 146/93 05/14/2022 1:57 PM BIAS CUTTER Pulse 69 05/14/2022 1:57 PM BIAS CUTTER Temperature 36.7 C (98.1 F) 05/14/2022 1:57 PM BIAS CUTTER Respiratory Rate 18 05/14/2022 1:57 PM BIAS CUTTER Oxygen Saturation 100% 05/14/2022 1:57 PM BIAS CUTTER Inhaled Oxygen Concentration - - Weight 144.2 kg (317 lb 14.4 oz) 05/14/2022 1:57 PM BIAS CUTTER Height 190.5 cm (6' 3 ) 05/14/2022 1:57 PM BIAS CUTTER Body Mass Index 39.73 05/14/2022 1:57 PM BIAS CUTTER Procedures * BASIC METABOLIC PANEL (CALCIUM TOTAL)(Performed 05/14/2022) Performed for Pre-op exam * MAGNESIUM BLOOD(Performed 05/14/2022) Performed for Pre-op exam * EKG 12-LEAD(Performed 05/14/2022) Performed for Pre-op exam * [place] LARYNGOSCOPY,FLEX FIBER,DIAGNOSTIC(Performed 12/15/2021) Performed for Mass of right side of neck * EXCISION LESION HEAD/NECK/SCALP Performed for 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) Results * BASIC METABOLIC PANEL (CALCIUM TOTAL) (05/14/2022 3:24 PM BIAS CUTTER) BUN 15 7 - 26 mg/dL 05/14/2022 4:35 PM [facility] Creatinine 1.07 0.71 - 1.16 mg/dL 05/14/2022 4:35 PM [facility] Sodium 139 136 - 145 mmol/L 05/14/2022 4:35 PM [facility] Potassium 4.2 3.5 - 4.5 mmol/L 05/14/2022 4:35 PM [facility] Chloride 103 98 - 107 mmol/L 05/14/2022 4:35 PM [facility] CO2 26 22 - 29 mmol/L 05/14/2022 4:35 PM [facility] Glucose 88 70 - 115 mg/dL 05/14/2022 4:35 PM [facility] Calcium 9.6 8.4 - 10.2 mg/dL 05/14/2022 4:35 PM [facility] Anion Gap 14 8 - 18 05/14/2022 4:35 PM [facility] BUN/Creatinine Ratio 14 7 - 23 05/14/2022 4:35 PM [facility] Osmolality Calculated 288 270 - 300 mOsm/kg 05/14/2022 4:35 PM [facility] eGFR by CKD-EPI >90 >=90 mL/min/1.7 3 m2 05/14/2022 4:35 PM [facility] Blood BLOOD SPECIMEN / Unknown Lab Venipuncture / Unknown 05/14/2022 3:24 PM BIAS CUTTER 05/14/2022 4:07 PM BIAS CUTTER Kita Drummond [facility] - CHEMISTRY ORDERABLES [address] [address], [facility] [phone] * MAGNESIUM BLOOD (05/14/2022 3:24 PM BIAS CUTTER) Magnesium 1.8 1.6 - 2.6 mg/dL 05/14/2022 4:35 PM [facility] Blood BLOOD SPECIMEN / Unknown Lab Venipuncture / Unknown 05/14/2022 3:24 PM BIAS CUTTER 05/14/2022 4:07 PM BIAS CUTTER Kita C Bhanu [facility] - CHEMISTRY ORDERABLES Performing Organization Address [facility]/ZIP Co de Phone Number [address] [address], [place] [phone] * EKG 12-LEAD (05/14/2022 2:11 PM BIAS CUTTER) Ventricular Rate 56 BPM [facility] Atrial Rate 56 BPM [facility] P-R Interval 142 ms [facility] QRS Duration ms 96 ms [facility] Q-T Interval ms 416 ms [facility] QTC Calculation (Bezet) 401 ms [facility] Calculated P [place] 0 degrees [facility] Calculated R [place] 11 degrees [facility] Calculated T [place] 17 degrees [facility] Interpretation EKG SINUS BRADYCARDIA NONSPECIFIC ST AND T WAVE ABNORMALITY ABNORMAL ECG NO PREVIOUS ECGS AVAILABLE Confirmed by fellow LEXII PEARSON MD ([id number]) on 05/31/2022 3:00:05 PM Confirmed by Nabeel DOUGHERTY, Nikkie ([id number]) on 05/31/2022 9:47:04 PM [facility] 05/14/2022 2:11 PM BIAS CUTTER 05/31/2022 9:47 PM BIAS CUTTER [facility]ita Drummond [facility] ORDERABLES [facility] * [place] LARYNGOSCOPY,FLEX FIBER,DIAGNOSTIC (12/15/2021 2:02 PM CDT) Narrative Sharan Singh APRN-CNP - 12/15/2021 2:02 PM CDT Sharan Singh APRN-CNP 12/15/2021 4:23 PM Due to the findings on physical examination, in correlation with the patient's symptomatology, the decision was made to perform a procedure today in clinic. Verbal consent obtained prior to starting procedure. Procedure note: Pre Op Dx: Right neck mass/swelling Post Op: Same Procedure: Flexible laryngoscopy Clinician: NEPTALI Singh After consent was obtained, a flexible fiberoptic endoscopy was performed. The patient's nose was sprayed with lidocaine and decongestant. After giving several minutes to allow the medications to work, the scope was introduced into bilateral nasal cavities. Normal mucosa was identified, there were no masses, no pus or polyps were seen. Next we proceeded with the remainder of laryngoscopy. The hypopharynx was normal. The bilateral vocal cords were mobile and symmetric. There was no significant reflux changes, including edema of the cords and/or supraglottic swelling. No masses or lesions were identified. The remainder of the flexible laryngoscopy was normal. Findings: 1. Right septal deviation 2. Right tonsil appears pushed towards midline 3.Otherwise normal flexible laryngoscopy I (Sharan Singh NP), was present for the entire procedure and verify that the patient tolerated the procedure well. Sharan GARCIA PROCEDURE/ MINOR SURGICAL ORDERABLES
--- OUTSIDE RECORDS SUMMARY | 2024-05-27 05:46 | XMS_ITS | Clinical Summary ---
Author Organization [facility] Address [address] [place] [address] Care Team Providers Care Inshore Undersea Warfare Officer Name Role Phone No, Physician Unavailable No, Physician Primary Care Provider [phone] Allergies Active Allergy Reactions Criticality Noted Date Comments Amoxicillin Amoxicillin Rash Medium 10/26/2020 Medications acetaminophen (TYLENOL) 500 mg tablet Take 1 tablet (500 mg total) by mouth every 6 (six) hours as needed for pain 30 tablet 03/17/2024 Active Encounters Date Type Department Care Team Description 03/17/2024 11:03 AM RESOURCE RECOVERY ENGINEER - 03/17/2024 11:56 AM [facility] Emergency [facility] Emergency Department [address] [place] [address] Facial laceration, initial encounter (Primary Dx); Injury of head, initial encounter Discharge Disposition: Discharge to home or self care from Last 3 Months Immunizations Immunization Administration Dates Next Due Tdap 03/17/2024 Social History Tobacco Use Types Packs/Day Years Used Date Smoking Tobacco: Never Assessed Personal Safety Answer Date Recorded Have you ever been in or are you currently in a harmful physical or emotional relationship or is someone making you feel afraid or unsafe? Denies 03/17/2024 Sex and Gender Information Value Date Recorded Sex Assigned at Not on file Legal Sex Male 12:38 AM RESOURCE RECOVERY ENGINEER Gender Identity Not on file Sexual Orientation Not on file Last Filed Vital Signs Vital Sign Reading Time Taken Comments Blood Pressure 150/98 03/17/2024 9:30 AM RESOURCE RECOVERY ENGINEER Pulse 64 03/17/2024 9:30 AM RESOURCE RECOVERY ENGINEER Temperature 36.8 C (98.3 F) 03/17/2024 9:30 AM RESOURCE RECOVERY ENGINEER Respiratory Rate 18 03/17/2024 9:30 AM RESOURCE RECOVERY ENGINEER Oxygen Saturation 96% 03/17/2024 9:30 AM RESOURCE RECOVERY ENGINEER Inhaled Oxygen Concentration - - Weight 147.4 kg (324 lb 15.3 oz) 03/17/2024 9:30 AM RESOURCE RECOVERY ENGINEER Height 188 cm (6' 2 ) 03/17/2024 9:30 AM RESOURCE RECOVERY ENGINEER Body Mass Index 41.72 03/17/2024 9:30 AM RESOURCE RECOVERY ENGINEER Plan of Treatment Health Maintenance Due Date Last Done Comments Depression Screening 1991 Hepatitis C Screening 1991 Varicella Vaccines (1 of 2 - 13+ 2-dose series) 2004 Hepatitis B Screening 2009 Regular Well Visit/Exam 18-64 2009 Covid-19 Vaccine (2 - 2023-2 5 season) 2023 04/16/2021 Influenza Vaccine (#1) 2023 DTaP/Tdap/Td Vaccine (3 - Td or Tdap) 03/17/2034 03/17/2024, 12/27/1994 HPV Vaccines Aged Out No longer eligi ble based on patient's age to complete this topic Pneumococcal vaccine <65 Aged Out No longer eligible based on patient's age to complete this topic Procedures Procedure Name Priority Date/Time Associated Diagnosis Comments ED LACERATION REPAIR Routine 03/17/2024 11:41 AM RESOURCE RECOVERY ENGINEER from Last 3 Months Results * Laceration Repair (03/17/2024 11:41 AM RESOURCE RECOVERY ENGINEER) Narrative Nereida Laguna PA - 03/17/2024 11:41 AM RESOURCE RECOVERY ENGINEER Nereida Laguna PA 03/17/2024 11:43 AM Laceration Repair Date/Time: 03/17/2024 11:41 AM Performed by: Nereida Laguna PA Authorized by: Dayton Mayfield DO Location: Face Face location: Forehead Length (cm): 1 Repair method: Steri-Strips Approximation: Close Dayton Mayfield DO IN CLINIC/BEDSIDE ORDERABLE S Final Result from Last 3 Months Insurance IDPA AETNA [facility] [place] [address] Care Teams Inshore Undersea Warfare Officer Relationship Specialty Start Date End Date No, Physician PCP - General 03/17/24 No, Physician 10/26/20
--- OUTSIDE RECORDS SUMMARY | 2024-05-27 05:46 | XMS_ITS | Referral Summary ---
Author Organization [facility] Address [address] [place] [address] Care Team Providers Care Oil Burner Repairer Name Role Phone No, Physician Unavailable No, Physician Primary Care Provider [phone] Encounters Date Type Department Care Team Description 03/17/2024 11:03 AM DESOLDERER - 03/17/2024 11:56 AM [facility] Emergency [facility] Emergency Department [address] [place] [address] Facial laceration, initial encounter (Primary Dx); Injury of head, initial encounter Discharge Disposition: Discharge to home or self care from Last 3 Months Allergies Active Allergy Reactions Criticality Noted Date Comments Amoxicillin Amoxicillin Rash Medium 10/26/2020 Medications acetaminophen (TYLENOL) 500 mg tablet Take 1 tablet (500 mg total) by mouth every 6 (six) hours as needed for pain 30 tablet 03/17/2024 Active Immunizations Immunization Administration Dates Next Due Tdap [...] on file Legal Sex Male 12:38 AM DESOLDERER Gender Identity Not on file Sexual Orientation Not on file Last Filed Vital Signs Vital Sign Reading Time Taken Comments Blood Pressure 150/98 03/17/2024 9:30 AM DESOLDERER Pulse 64 03/17/2024 9:30 AM DESOLDERER Temperature 36.8 C (98.3 F) 03/17/2024 9:30 AM DESOLDERER Respiratory Rate 18 03/17/2024 9:30 AM DESOLDERER Oxygen Saturation 96% 03/17/2024 9:30 AM DESOLDERER Inhaled Oxygen Concentration - - Weight 147.4 kg (324 lb 15.3 oz) 03/17/2024 9:30 AM DESOLDERER Height 188 cm (6' 2 ) 03/17/2024 9:30 AM DESOLDERER Body Mass Index 41.72 03/17/2024 9:30 AM DESOLDERER Plan of Treatment Not on file Procedures Procedure Name Priority Date/Time Associated Diagnosis Comments ED LACERATION REPAIR Routine 03/17/2024 11:41 AM DESOLDERER from Last 3 Months Results * Laceration Repair (03/17/2024 11:41 AM DESOLDERER) Narrative Nereida Laguna PA - 03/17/2024 11:41 AM DESOLDERER Nereida Laguna PA 03/17/2024 11:43 AM Laceration Repair Date/Time: 03/17/2024 11:41 AM Performed by: Nereida Laguna PA Authorized by: Dayton Mayfield DO Location: Face Face location: Forehead Length (cm): 1 Repair method: Steri-Strips Approximation: Close Dayton Mayfield DO IN CLINIC/BEDSIDE ORDERABLE S Final Result from Last 3 Months Insurance IDPA AETNA [facility] [place] [address] Care Teams Oil Burner Repairer Relationship Specialty Start Date End Date No, Physician PCP - General 03/17/24 No, Physician 10/26/20
--- OUTSIDE RECORDS SUMMARY | 2024-05-27 05:46 | XMS_ITS | Clinical Summary ---
Author Organization [facility] Address [address] [place] [address] Care Team Providers Care Home Restoration Service Cleaner Name Role Phone Unavailable Primary Care Provider Unavailabl e Allergies Active Allergy Reactions Criticality Noted Date Comments Amoxicillin-Pot Clavulanate Other (see comment) 12/10/2020 Mom never let me have it. Social History Tobacco Use Types Packs/Day Years Used Date Smoking Tobacco: Never Smokeless Tobacco: Never Alcohol Use Standard Drinks/Week Comments Yes 0 (1 standard drink = 0.6 oz pur e alcohol) sometimes Sex and Gender Information Value Date Recorded Sex Assigned at Not on file Legal Sex Male 7:45 PM CDT Gender Identity Not on file Sexual Orientation Not on file Last Filed Vital Signs Vital Sign Reading Time Taken Comments Blood Pressure 169/99 12/10/2020 7:54 PM CDT Pulse 73 12/10/2020 7:54 PM CDT Temperature 37.1 C (98.7 F) 12/10/2020 7:54 PM CDT Respiratory Rate 18 12/10/2020 7:54 PM CDT Oxygen Saturation 98% 12/10/2020 7:54 PM CDT Inhaled Oxygen Concentration - - Weight 132.9 kg (292 lb 15.9 oz) 12/10/2020 7:54 PM CDT Height 190.5 cm (6' 3 ) 12/10/2020 7:5 4 PM CDT Body Mass Index 36.62 12/10/2020 7:54 PM CDT Plan of Treatment Health Maintenance Due Date Last Done Comments Annual Physical 1994 Hepatitis C 2009 DTaP, Tdap and Td Vaccines ( 1 - Tdap) 2010 12/27/1994 Hepatitis B Vaccines (1 of 3 - 19+ 3-dose series) 2010 COVID-19 Vaccine (2023-2 5 season) 2023 Influenza Adult (#1) 2023 HPV Vaccines Aged Out No longer eligi ble based on patient's age to complete this topic Meningococcal B Vaccine Aged Out No l onger eligible based on patient's age to complete this topic Meningococcal Vaccine Aged Out No natalie jocelyne eligible based on patient's age to complete this topic Pneumococcal Vaccine: Pediat rics (0 to 5 Years) and At-Risk Patients (6 to 64 Years) Aged Out No longer eligi ble based on patient's age to complete this topic RSV Immunizations Under 20 Months Aged Out No longer eligible based on patient's age to complete this topic Insurance MEDICAID
[2024-05-27 06:32] LABS: Influenza A QL RT-PCR Positive (Negative); Influenza B QL RT-PCR Negative (Negative); RSV RNA, RT-PCR Negative (Negative); SARS-CoV-2 RNA PCR Negative (Negative)
--- NOTE | 2024-05-27 07:15 | PC.NURSE ---
Patient states he is going to go to the urgent care at 0800.
--- OUTSIDE RECORDS SUMMARY | 2024-05-27 07:27 | XMS_ITS | Referral Summary ---
Author Organization [facility] Address [address] [place] [address] Care Team Providers Care Carpenter Prototype Name Role Phone No, Physician Unavailable No, Physician Primary Care Provider [phone] Encounters Date Type Department Care Team Description 03/17/2024 11:03 AM DIRECTOR SYSTEMS - 03/17/2024 11:56 AM [facility] Emergency [facility] Emergency Department [address] [place] [address] Facial laceration, initial encounter (Primary [...] on file Legal Sex Male 12:38 AM DIRECTOR SYSTEMS Gender Identity Not on file Sexual Orientation Not on file Last Filed Vital Signs Vital Sign Reading Time Taken Comments Blood Pressure 150/98 03/17/2024 9:30 AM DIRECTOR SYSTEMS Pulse 64 03/17/2024 9:30 AM DIRECTOR SYSTEMS Temperature 36.8 C (98.3 F) 03/17/2024 9:30 AM DIRECTOR SYSTEMS Respiratory Rate 18 03/17/2024 9:30 AM DIRECTOR SYSTEMS Oxygen Saturation 96% 03/17/2024 9:30 AM DIRECTOR SYSTEMS Inhaled Oxygen Concentration - - Weight 147.4 kg (324 lb 15.3 oz) 03/17/2024 9:30 AM DIRECTOR SYSTEMS Height 188 cm (6' 2 ) 03/17/2024 9:30 AM DIRECTOR SYSTEMS Body Mass Index 41.72 03/17/2024 9:30 AM DIRECTOR SYSTEMS Plan of Treatment Not on file Procedures Procedure Name Priority Date/Time Associated Diagnosis Comments ED LACERATION REPAIR Routine 03/17/2024 11:41 AM DIRECTOR SYSTEMS from Last 3 Months Results * Laceration Repair (03/17/2024 11:41 AM DIRECTOR SYSTEMS) Narrative Nereida Laguna PA - 03/17/2024 11:41 AM DIRECTOR SYSTEMS Nereida Laguna PA 03/17/2024 11:43 AM Laceration Repair Date/Time: 03/17/2024 11:41 AM Performed by: Nereida Laguna PA Authorized by: Dayton Mayfield DO Location: Face Face location: Forehead Length (cm): 1 Repair method: Steri-Strips Approximation: Close Dayton Mayfield DO IN CLINIC/BEDSIDE ORDERABLE S Final Result from Last 3 Months Insurance IDPA AETNA [facility] [place] [address] Care Teams Carpenter Prototype Relationship Specialty Start Date End Date No, Physician PCP - General 03/17/24 No, Physician 10/26/20
--- OUTSIDE RECORDS SUMMARY | 2024-05-27 07:27 | XMS_ITS | Clinical Summary ---
Author Organization [facility] Address [address] [place] [address] Care Team Providers Care Silver Designer Name Role Phone No, Physician Unavailable No, Physician Primary Care Provider [phone] Allergies Active Allergy Reactions Criticality Noted Date Comments Amoxicillin Amoxicillin Rash Medium 10/26/2020 Medications acetaminophen (TYLENOL) 500 mg tablet Take 1 tablet (500 mg total) by mouth every 6 (six) hours as needed for pain 30 tablet 03/17/2024 Active Encounters Date Type Department Care Team Description 03/17/2024 11:03 AM ARMOR RECONNAISSANCE SPECIALIST - 03/17/2024 11:56 AM [facility] Emergency [facility] Emergency Department [address] [place] [address] Facial laceration, initial encounter (Primary [...] on file Legal Sex Male 12:38 AM ARMOR RECONNAISSANCE SPECIALIST Gender Identity Not on file Sexual Orientation Not on file Last Filed Vital Signs Vital Sign Reading Time Taken Comments Blood Pressure 150/98 03/17/2024 9:30 AM ARMOR RECONNAISSANCE SPECIALIST Pulse 64 03/17/2024 9:30 AM ARMOR RECONNAISSANCE SPECIALIST Temperature 36.8 C (98.3 F) 03/17/2024 9:30 AM ARMOR RECONNAISSANCE SPECIALIST Respiratory Rate 18 03/17/2024 9:30 AM ARMOR RECONNAISSANCE SPECIALIST Oxygen Saturation 96% 03/17/2024 9:30 AM ARMOR RECONNAISSANCE SPECIALIST Inhaled Oxygen Concentration - - Weight 147.4 kg (324 lb 15.3 oz) 03/17/2024 9:30 AM ARMOR RECONNAISSANCE SPECIALIST Height 188 cm (6' 2 ) 03/17/2024 9:30 AM ARMOR RECONNAISSANCE SPECIALIST Body Mass Index 41.72 03/17/2024 9:30 AM ARMOR RECONNAISSANCE SPECIALIST Plan of Treatment Health Maintenance Due Date [...] ED LACERATION REPAIR Routine 03/17/2024 11:41 AM ARMOR RECONNAISSANCE SPECIALIST from Last 3 Months Results * Laceration Repair (03/17/2024 11:41 AM ARMOR RECONNAISSANCE SPECIALIST) Narrative Nereida Laguna PA - 03/17/2024 11:41 AM ARMOR RECONNAISSANCE SPECIALIST Nereida Laguna PA 03/17/2024 11:43 AM Laceration Repair Date/Time: 03/17/2024 11:41 AM Performed by: Nereida Laguna PA Authorized by: Dayton Mayfield DO Location: Face Face location: Forehead Length (cm): 1 Repair method: Steri-Strips Approximation: Close Dayton Mayfield DO IN CLINIC/BEDSIDE ORDERABLE S Final Result from Last 3 Months Insurance IDPA A[employer] [address] Care Teams Silver Designer Relationship Specialty Start Date End Date No, Physician PCP - General 03/17/24 No, Physician 10/26/20
--- OUTSIDE RECORDS SUMMARY | 2024-05-27 07:27 | XMS_ITS | Clinical Summary ---
Author Organization [facility] [employer] Address [address] [place] [address] Care Team Providers Care Plastic Welder Name Role Phone Unavailable Primary Care Provider Unavailabl e Source Comments [facility],non-owned Affiliates and Associated Physician Practices is amultiple site organization consisting of ambulatory clinics and hospital sitesin [place], [place], [place] and [place]. This disclosure is being madepursuant to the Care Everywhere program and may not contain all information available regarding this patient. Last updated 17.[facility] [employer] Allergies Active Allergy Reactions Criticality Noted Date Comments Amoxicillin Rash Medium 10/26/2020 Medications * Be aware that medications may not be up to date on this document. Alwaysverify current medications with the patient. Medication Sig Dispensed Refills Start Date End Date Status fluticasone propionate (Flonase) 50 MCG/ACT nasal sprayIndications:Seaso nal allergic rhinitis, unspecified trigger Ideal 2 (two) sprays into each nostril once [...] Comments Blood Pressure 146/93 05/14/2022 1:57 PM CROSSING TENDER Pulse 69 05/14/2022 1:57 PM CROSSING TENDER Temperature 36.7 C (98.1 F) 05/14/2022 1:57 PM CROSSING TENDER Respiratory Rate 18 05/14/2022 1:57 PM CROSSING TENDER Oxygen Saturation 100% 05/14/2022 1:57 PM CROSSING TENDER Inhaled Oxygen Concentration - - Weight 144.2 kg (317 lb 14.4 oz) 05/14/2022 1:57 PM CROSSING TENDER Height 190.5 cm (6' 3 ) 05/14/2022 1:57 PM CROSSING TENDER Body Mass Index 39.73 05/14/2022 1:57 PM CROSSING TENDER Plan of Treatment Health Maintenance Due Date [...] topic BRICE MENDEZ Personal/Famil y 1990 [address] [place] [address] Brice Canales Personal/Famil y Self 1990 [address] [place] [address]
--- OUTSIDE RECORDS SUMMARY | 2024-05-27 07:27 | XMS_ITS | Patient Health Summary ---
Author Organization [facility] Address [address] [place] [address] Care Team Providers Care Water Softener Servicer And Installer Name Role Phone Unavailable Primary Care Provider Unavailabl e Note from [facility],non-owned Affiliates and Associated Physician Practices is amultiple site organization consisting of ambulatory clinics and hospital sitesin [place], [place], [place] and [place]. This disclosure is being madepursuant to the Care Everywhere program and may not contain all information available regarding this patient. Last updated 17.[facility] Allergies * Amoxicillin(Rash) -Medium Criticality Medications * Be aware that medications may not be up to date on this document. Alwaysverify current medications with the patient. * fluticasone propionate (Flonase) 50 MCG/ACT nasal spray(Started 12/15/2021) M[place]am[place] 2 (two) sprays into each nostril once [...] Comments Blood Pressure 146/93 05/14/2022 1:57 PM LOADER OPERATOR/GROUND LEADER Pulse 69 05/14/2022 1:57 PM LOADER OPERATOR/GROUND LEADER Temperature 36.7 C (98.1 F) 05/14/2022 1:57 PM LOADER OPERATOR/GROUND LEADER Respiratory Rate 18 05/14/2022 1:57 PM LOADER OPERATOR/GROUND LEADER Oxygen Saturation 100% 05/14/2022 1:57 PM LOADER OPERATOR/GROUND LEADER Inhaled Oxygen Concentration - - Weight 144.2 kg (317 lb 14.4 oz) 05/14/2022 1:57 PM LOADER OPERATOR/GROUND LEADER Height 190.5 cm (6' 3 ) 05/14/2022 1:57 PM LOADER OPERATOR/GROUND LEADER Body Mass Index 39.73 05/14/2022 1:57 PM LOADER OPERATOR/GROUND LEADER Procedures * BASIC METABOLIC PANEL (CALCIUM TOTAL)(Performed 05/14/2022) Performed for Pre-op exam * MAGNESIUM BLOOD(Performed 05/14/2022) Performed for Pre-op exam * EKG 12-LEAD(Performed 05/14/2022) Performed for Pre-op exam * UT LARYNGOSCOPY,FLEX FIBER,DIAGNOSTIC(Performed 12/15/2021) Performed for Mass of right side of neck * EXCISION LESION HEAD/NECK/SCALP Performed for 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) Results * BASIC METABOLIC PANEL (CALCIUM TOTAL) (05/14/2022 3:24 PM LOADER OPERATOR/GROUND LEADER) BUN 15 7 - 26 mg/dL 05/14/2022 4:35 PM [facility] Creatinine 1.07 0.71 - 1.16 mg/dL 05/14/2022 4:35 PM [facility] Sodium 139 136 - 145 mmol/L 05/14/2022 4:35 PM [facility] Potassium 4.2 3.5 - 4.5 mmol/L 05/14/2022 4:35 PM [facility] Chloride 103 98 - 107 mmol/L 05/14/2022 4:35 PM [facility] CO2 26 22 - 29 mmol/L 05/14/2022 4:35 PM [facility] Glucose 88 70 - 115 mg/dL 05/14/2022 4:35 PM [facility] Calcium 9.6 8.4 - 10.2 mg/dL 05/14/2022 4:35 PM [facility] Anion Gap 14 8 - 18 05/14/2022 4:35 PM [facility] BUN/Creatinine Ratio 14 7 - 23 05/14/2022 4:35 PM [facility] Osmolality Calculated 288 270 - 300 mOsm/kg 05/14/2022 4:35 PM [facility] eGFR by CKD-EPI >90 >=90 mL/min/1.7 3 m2 05/14/2022 4:35 PM [facility] Blood BLOOD SPECIMEN / Unknown Lab Venipuncture / Unknown 05/14/2022 3:24 PM LOADER OPERATOR/GROUND LEADER 05/14/2022 4:07 PM LOADER OPERATOR/GROUND LEADER Kita Drummond [facility] - CHEMISTRY ORDERABLES [address] [address], [facility] [phone] * MAGNESIUM BLOOD (05/14/2022 3:24 PM LOADER OPERATOR/GROUND LEADER) Magnesium 1.8 1.6 - 2.6 mg/dL 05/14/2022 4:35 PM [facility] Blood BLOOD SPECIMEN / Unknown Lab Venipuncture / Unknown 05/14/2022 3:24 PM LOADER OPERATOR/GROUND LEADER 05/14/2022 4:07 PM LOADER OPERATOR/GROUND LEADER Kita C Bhanu [facility] - CHEMISTRY ORDERABLES Performing Organization Address [facility]/ZIP Co de Phone Number [address] [address], [place] [phone] * EKG 12-LEAD (05/14/2022 2:11 PM LOADER OPERATOR/GROUND LEADER) Ventricular Rate 56 BPM [facility] Atrial Rate 56 BPM [facility] P-R Interval 142 ms [facility] QRS Duration ms 96 ms [facility] Q-T Interval ms 416 ms [facility] QTC Calculation (Bezet) 401 ms [facility] Calculated P Ames 0 degrees [facility] Calculated R Ames 11 degrees [facility] Calculated T Ames 17 degrees [facility] Interpretation EKG SINUS BRADYCARDIA NONSPECIFIC ST AND T WAVE ABNORMALITY ABNORMAL ECG NO PREVIOUS ECGS AVAILABLE Confirmed by fellow LEXII PEARSON MD ([id number]) on 05/31/2022 3:00:05 PM Confirmed by Nabeel DOUGHERTY, Nikkie ([id number]) on 05/31/2022 9:47:04 PM [facility] 05/14/2022 2:11 PM LOADER OPERATOR/GROUND LEADER 05/31/2022 9:47 PM LOADER OPERATOR/GROUND LEADER Kita Drummond [facility] ECG ORDERABLES [facility] * UT LARYNGOSCOPY,FLEX FIBER,DIAGNOSTIC (12/15/2021 2:02 PM CDT) Narrative [...]
--- OUTSIDE RECORDS SUMMARY | 2024-05-27 07:27 | XMS_ITS | Referral Summary ---
Author Organization [facility] [employer] Address [address] [place] [address] Care Team Providers Care Devil Dog Name Role Phone Unavailable Primary Care Provider Unavailabl e Source Comments [facility],non-owned Affiliates and Associated Physician Practices is amultiple site organization consisting of ambulatory clinics and hospital sitesin [place], [place], [place] and [place]. This disclosure is being madepursuant to the Care Everywhere program and may not contain all information available regarding this patient. Last updated 17.[facility] [employer] Allergies Active Allergy Reactions Criticality Noted Date Comments Amoxicillin Rash Medium 10/26/2020 Medications * Be aware that medications may not be up to date on this document. Alwaysverify current medications with the patient. Medication Sig Dispensed Refills Start Date End Date Status fluticasone propionate (Flonase) 50 MCG/ACT nasal sprayIndications:Seaso nal allergic rhinitis, unspecified trigger [place] 2 (two) sprays into each nostril once [...] Comments Blood Pressure 146/93 05/14/2022 1:57 PM MOLD LOFT WORKER Pulse 69 05/14/2022 1:57 PM MOLD LOFT WORKER Temperature 36.7 C (98.1 F) 05/14/2022 1:57 PM MOLD LOFT WORKER Respiratory Rate 18 05/14/2022 1:57 PM MOLD LOFT WORKER Oxygen Saturation 100% 05/14/2022 1:57 PM MOLD LOFT WORKER Inhaled Oxygen Concentration - - Weight 144.2 kg (317 lb 14.4 oz) 05/14/2022 1:57 PM MOLD LOFT WORKER Height 190.5 cm (6' 3 ) 05/14/2022 1:57 PM MOLD LOFT WORKER Body Mass Index 39.73 05/14/2022 1:57 PM MOLD LOFT WORKER Plan of Treatment Not on file BRICE MENDEZ Personal/Famil y 1990 [address] [place] [address] Brice Canales Personal/Famil y Self 1990 [address] [place] [address]
--- OUTSIDE RECORDS SUMMARY | 2024-05-27 07:27 | XMS_ITS | Clinical Summary ---
Author Organization [facility] Address [address] [place] [address] Care Team Providers Care Life Management Teacher Name Role Phone Unavailable Primary Care Provider [...]
== END 2024-05-27 07:25 | disposition left against medical advice (07) ==
LOC: ANHED 07:21
PROVIDERS: Emergency Provider Emergency Medicine
DX: R51.9 Headache, unspecified (principal)
CPT/HCPCS: 87637; 99199